=== PATIENT | male | born 1960 | race Caucasian/White ===

== ENCOUNTER 2016-12-04 08:41 | Emergency (ER) | payer BC ==
[~2016-12-04] VITALS: Ht 170.2 cm; Wt 77.1 kg
[2016-12-04 08:41] VITALS: BP_SYST 171
[~2016-12-04 08:41] MED LIST: AMLO2.5T2 PO; FURO80TA86 PO; INSU100V; LACT10SO66 PO; METH750T3 PO; NPH,100V SUBCUT; OMEP40CA33 PO; SPIR100T24 PO; TAMS-11 PO
[2016-12-04 09:30] VITALS: BP_SYST 126
== END 2016-12-04 09:20 | disposition home or self-care (01) ==
LOC: SED 08:41
DX: Z48.01 Encounter for change or removal of surgical wound dressing (principal); E11.9 Type 2 diabetes mellitus without complications; K21.9 Gastro-esophageal reflux disease without esophagitis; I10 Essential (primary) hypertension; Z86.19 Personal history of other infectious and parasitic diseases; Z98.890 Other specified postprocedural states; Z79.4 Long term (current) use of insulin; Z79.899 Other long term (current) drug therapy; Z88.8 Allergy status to other drugs, medicaments and biological substances
CPT/HCPCS: 99283

== ENCOUNTER 2016-12-09 21:15 | Inpatient (IN) | payer BC ==
[~2016-12-09] VITALS: Ht 167.6 cm; Wt 72.6 kg
[~2016-12-09 21:15] MED LIST changes: +ACET-1010 PO; +CIPR-211 PO; +CYAN500T2 PO; +FURO80TA3 PO; +HYDR-1189 PO; +LORA1TAB PO; +METH500T PO; +RANI150T8 PO; +SSNPH SQ
[2016-12-09 21:30] VITALS: BP 146/85; PULSE 91; RESP 20; TEMP 97.6; O2SAT 100
--- NOTE | 2016-12-09 22:00 | NUR ---
MABLE Cee at bedside examining patient.
--- NOTE | 2016-12-09 22:00 | NUR ---
Patient to ER bed 5 to gown for evaluation. Side rails up. Assumed care of pt.
[2016-12-09 22:29] LABS: BASOPHILS % (AUTO) 0.8 % (0.0-2.0); EOSINOPHILS # (AUTO) 0.1 K/uL (0.0-0.4); EOSINOPHILS % (AUTO) 1.9 % (0.0-4.0); HEMOGLOBIN 9.4 g/dL (14.0-18.0); LYMPHOCYTES # (AUTO) 0.8 K/uL (1.0-5.5); LYMPHOCYTES % (AUTO) 13.3 % (20.5-51.5); MEAN CORPUSCULAR HEMOGLOBIN 30 pg (27-31); MEAN CORPUSCULAR HGB CONC 34 % (32-36); MEAN CORPUSCULAR VOLUME 90 fL (79.0-98.0); MONOCYTES # (AUTO) 0.7 K/uL (0.0-1.0); NEUTROPHILS # (AUTO) 4.4 K/uL (1.8-7.7); PLATELET COUNT (AUTO) 196 K/uL (130-430); RED BLOOD CELL COUNT(AUTO) 3.11 MIL/uL (4.2-6.2); RED CELL DISTRIBUTION WIDTH 17.2 % (9.0-15.0)
[2016-12-09] MEDS ORDERED: LORazepam 2 MG/ML VIAL (FOR ER USE) IVP ONE (22:30)
--- NOTE | 2016-12-09 22:30 | NUR ---
Pt. presented to ED with ALOC, pt. is AAOx2. Has c/o nausea. -vomiting, -SOB, -fever
[2016-12-09 22:41] LABS: ANION GAP 6 (5-15); CALCIUM 7.7 mg/dL (8.4-11.0); CHLORIDE 112 mmol/L (98-107); CREATININE 1.95 mg/dL (0.55-1.30); GLUCOSE 157 mg/dL (70-99); POTASSIUM 4.3 mmol/L (3.5-5.1); SODIUM SERUM 137 mmol/L (136-145); UREA NITROGEN, BLOOD 29 mg/dL (8-21)
[2016-12-09 22:45] LABS: ALANINE AMINOTRANSFERASE 68 U/L (12-78); ALBUMIN 2.1 g/dL (3.4-4.8); ASPARTATE AMINOTRANSFERASE 64 U/L (10-37); TOTAL BILIRUBIN 2.2 mg/dL (0.0-1.0); TOTAL PROTEIN, SERUM 7.4 g/dL (6.4-8.3)
[2016-12-09 22:50] LABS: GFR AFRICAN AMERICAN 46 mL/min (>90)
[2016-12-09 22:51] LABS: ALCOHOL, BLOOD < 3 mg/dL (<10)
[2016-12-09 22:52] LABS: SALICYLATE < 1 mg/dL (3-30)
--- NOTE | 2016-12-09 23:10 | NUR ---
pt. to CT scan
[2016-12-09 23:13] LABS: INR 1.4 (0.80-1.20)
[2016-12-09 23:15] LABS: ACETAMINOPHEN < 1 ug/mL (1-30)
[2016-12-09] MEDS ORDERED: LACTULOSE 20 GM/30 ML UDC PO ONE (23:15)
--- NOTE | 2016-12-09 23:23 | NUR ---
Pt. back from CT
[2016-12-09] MEDS ORDERED: metformin PO (23:41)
[2016-12-09] MEDS ORDERED: lexapro PO (23:41)
--- NOTE | 2016-12-09 23:48 | NUR ---
Primary admitting physician, at bedside examining patient.
[2016-12-10] VITALS (7 sets, daily range): BP systolic 139–163; BP diastolic 73–112; PULSE 65–93; RESP 16–20; TEMP 97.1–99.6; O2SAT 98–100
[2016-12-10] MEDS ORDERED: 0.45% NACL 1,000 ML IV ONE (00:15)
[2016-12-10] MEDS: PANTOPRAZOLE SODIUM 40 MG TAB PO SCH ×3 (00:15→21:17)
[2016-12-10] MEDS ORDERED: DEXTROSE 50% JECT 50 ML DISP.SYRIN IVP PRN (00:15)
[2016-12-10] MEDS ORDERED: cefTRIAXone 1 GM in D5W 50 ML IV SCH (00:30)
--- NOTE | 2016-12-10 00:35 | NUR ---
Pt. being transfered to [place] [id number] as per ACLS protocol, pt. stable for transfer at this time
--- NOTE | 2016-12-10 00:40 | NUR ---
ADMISSION NOTE Received patient from ER via gurney. Patient admitted with diagnosis of Hepatic Encephalopathy. Patient is awake, alert, oriented X 1. Patient oriented to hospital room, call light, toileting, pain management and safety-teach back done. Patient informed that Heath will be his nurse and that their room number is 120A. Personal belongings checked and Belongings List documented. Call light within reach.
--- NOTE | 2016-12-10 00:41 | NUR ---
Bedside report given to receiving RN
--- NOTE | 2016-12-10 00:43 | NUR ---
CONSULTATION PAGED REASON FOR CONSULTATION:CIRRHOSIS WAS CONSULT CALLED?Y PERSON WHO WAS NOTIFIED:[facility] CONSULTING PHYSICIAN:JUSTEN VEGA (BRIG[employer] OFFICER) BREASTFEEDING PEER COUNSELOR SPECIALTY:GI BREASTFEEDING PEER COUNSELOR PHONE NUMBER:[phone]
--- NOTE | 2016-12-10 00:45 | NUR ---
pt.recieved via the er-dept.pt.presents stable status.quiescent affect;calm,somnolent.v/s values stable. pt.not verbalizing @this hour.apprised pt.received ativan:er-dept.room air;o2-sat%=98%.abdomen distended. iv fluids access;rt forearm.ivlock.call light placed w/in pt's reach.
--- NOTE | 2016-12-10 00:46 | NUR ---
CONSULTATION PAGED REASON FOR CONSULTATION:CP WAS CONSULT CALLED?Y PERSON WHO WAS NOTIFIED:[facility] CONSULTING PHYSICIAN:BRIA PÉREZ AUTO JOB ESTIMATOR SPECIALTY:CARDIO AUTO JOB ESTIMATOR PHONE NUMBER:[phone]
--- NOTE | 2016-12-10 01:15 | NUR ---
i have assessed the blood glucose;109mg/dl i reviewed 's orders:blood glucose ordered:ac/hs. Addendum: 12/10/16 at 0756 by Heath Johnson RN pt.lauraed.
[2016-12-10] MEDS ORDERED: cefTRIAXone 1 GM IVPB PREMIX 50 ML IV ONE (01:36)
--- NOTE | 2016-12-10 02:00 | NUR ---
i have initiated the administration of iv fluids:45/ns @100ml/hr.i have administered the initial dose:rocephin:abx/ivpb. review of skin integrity:reveals skin intact.call light w/in pt's reach.no distress/discomfort manifested.call light w/in the pt's reach. Addendum: 12/10/16 at 0755 by Heath Johnson RN pt.repositioned.
--- NOTE | 2016-12-10 04:00 | NUR ---
pt.assessed.v/s assessed.b/p presents elevated value:to f/u.pt.presents quiescent affect;calm,asleep. no distress/discomfort manifested.pt.will verbalize 1-2 words only.return to sleep.call light w/in pt's reach. Addendum: 12/10/16 at 0755 by Heath Johnson RN pt.repositioned and cleaned.
[2016-12-10] MEDS: NEOMYCIN SULFATE 500 MG TABLET PO SCH ×3 (05:31→11:25)
--- NOTE | 2016-12-10 06:00 | NUR ---
pt.assessed.pt.presents quiescent affect;calm,asleep.belonging's list reviewed:er-dept.pt.presented valubles @the unit>al valuables sent w/family:clothing abnd cellular w/acetylene torch operator @bedside.blood glucose assessed:102mg/dl. call light laced w/in pt's reach.pt.repositioned.
[2016-12-10 07:04] LABS: BASOPHILS # (AUTO) 0.1 K/uL (0.0-0.2); BASOPHILS % (AUTO) 1.5 % (0.0-2.0); EOSINOPHILS # (AUTO) 0.2 K/uL (0.0-0.4); EOSINOPHILS % (AUTO) 3.6 % (0.0-4.0); HEMATOCRIT 30.3 % (36-54); LYMPHOCYTES # (AUTO) 0.8 K/uL (1.0-5.5); LYMPHOCYTES % (AUTO) 17.3 % (20.5-51.5); MEAN CORPUSCULAR HEMOGLOBIN 30 pg (27-31); MEAN CORPUSCULAR HGB CONC 33 % (32-36); MEAN CORPUSCULAR VOLUME 91 fL (79.0-98.0); MONOCYTES # (AUTO) 0.6 K/uL (0.0-1.0); MONOCYTES % (AUTO) 13.7 % (1.7-9.3); NEUTROPHILS # (AUTO) 2.9 K/uL (1.8-7.7); NEUTROPHILS % (AUTO) 63.9 % (40.0-70.0); PLATELET COUNT (AUTO) 184 K/uL (130-430); RED BLOOD CELL COUNT(AUTO) 3.33 MIL/uL (4.2-6.2); RED CELL DISTRIBUTION WIDTH 17.5 % (9.0-15.0); WHITE BLOOD COUNT (AUTO) 4.6 K/uL (4.8-10.8)
[2016-12-10 07:32] LABS: CALCIUM 8.1 mg/dL (8.4-11.0); CREATININE 1.62 mg/dL (0.55-1.30); PHOSPHORUS 3.6 mg/dL (2.7-4.5); POTASSIUM 3.9 mmol/L (3.5-5.1)
[2016-12-10 07:33] LABS: FREE T4 (FREE THYROXINE) 0.8 ng/dL (0.6-1.6); THYROID STIMULATING HORMONE 2.35 uIu/mL (0.34-4.82)
--- NOTE | 2016-12-10 08:00 | NUR ---
AM Initial Notes Pt asleep but when awakened alert and oriented 2 with confusion. Pt appears lethargic. No complaints of pain or discomfort. No distress noted. futures trader in place. Safety and Fall risk enforced with bed alarm armed, 3 rails up and close to nurse's station. Encouraged to eat breakfast. Pt states he is not hungry and went back to sleep. Encouraged to call for assistance. Call light within reach. Will monitor.
[2016-12-10] MEDS ORDERED: OMEPRAZOLE 20 MG CAPSULE.DR (PriLOSEC) PO SCH (09:00)
[2016-12-10] MEDS ORDERED: LACTULOSE 20 GM/30 ML UDC PO SCH (09:00)
[2016-12-10] MEDS: FUROSEMIDE 80 MG TABLET PO SCH (09:02)
[2016-12-10] MEDS: SPIRONOLACTONE 50 MG TABLET (ALDACTONE) PO SCH (09:02)
[2016-12-10] MEDS: amLODIPine BESYLATE 5 MG TABLET PO SCH (09:03)
--- NOTE | 2016-12-10 09:07 | NUR ---
Nutrition Update Himanshu Scale 13 noted. Pt admitted for hepatic encephalopathy. Diet: full liquid BMI: 25.8 kg/m2 RD to follow per nutrition care standards.
--- NOTE | 2016-12-10 09:08 | NUR ---
Dr. Lavenr GRANADO inside room assessing patient.
--- NOTE | 2016-12-10 10:00 | NUR ---
Rounds Pt lethargic having 2D echo done. No complaints of pain or discomfort. No distress noted. Will monitor.
--- NOTE | 2016-12-10 11:30 | NUR ---
Dr. Danny GRANADO inside room assessing patient. Plan of care discussed.
[2016-12-10] MEDS: INSULIN REGULAR, HUMAN 100 UNITS/ML, 10 ML VIAL (novoLIN R) SUBCUT PRN ×2 (11:32→21:29)
--- NOTE | 2016-12-10 11:49 | NUR ---
Rounds Pt awake assisted to restroom for BRP. No complaints of pain or discomfort. No distress noted. Tremors noted and informed Dr. Delgado. Blood sugar monitor 189. Insulin sliding scale administered. Kept comfortable. Encouraged to call for assistance. Will monitor.
[2016-12-10] MEDS ORDERED: chlordiazePOXIDE HCL 10 MG CAPSULE PO ONE ×3 (12:00)
[2016-12-10] MEDS: chlordiazePOXIDE HCL 10 MG CAPSULE PO SCH ×2 (12:00→21:16)
[2016-12-10] MEDS ORDERED: PHYTONADIONE 5 MG TABLET PO ONE (12:00)
[2016-12-10] MEDS ORDERED: NEOMYCIN SULFATE 500 MG TABLET PO SCH (12:00)
[2016-12-10] MEDS ORDERED: DICLOFENAC SODIUM 25 MG TABLET.DR PO PRN (12:30)
[2016-12-10] MEDS ORDERED: THIAMINE HCL 100 MG TABLET PO ONE (12:45)
[2016-12-10] MEDS ORDERED: NEPHROVITE, (FOLIC ACID/VITAMIN B COMP W-C 1 TAB) PO ONE (12:45)
--- NOTE | 2016-12-10 13:22 | NUR ---
Consult was called Re: Bacteremia spoke with Rajni from Dr Connie escalera .
--- NOTE | 2016-12-10 13:30 | NUR ---
cons for dr darron davis from [facility] for right shoulder pain
--- NOTE | 2016-12-10 13:30 | NUR ---
Rounds Pt asleep. No signs of facial grimacing for pain or discomfort. No distress noted. Repositioned and kept comfortable. Will monitor.
[2016-12-10] MEDS: PIPERACILLIN/TAZO 2.25G/DEX-IS 50 ML IV SCH ×3 (14:57→23:01)
--- NOTE | 2016-12-10 15:13 | NUR ---
Rounds Pt awake resting in bed. No significant changes noted. Kept comfortable. Will monitor.
[2016-12-10] MEDS: TAMSULOSIN HCL 0.4 MG CAP PO SCH (17:27)
[2016-12-10] MEDS: LACTULOSE 20 GM/30 ML UDC PO SCH (17:28)
--- NOTE | 2016-12-10 17:30 | NUR ---
Rounds Pt awake resting in bed. No significant changes noted. Blood sugar check 149. No insulin scale needed. Encouraged to call for assistance. Call light within reach. Will monitor.
[2016-12-10 18:14] LABS: BODY FLUID SOURCE/ TYPE ASCITES; SOURCE/TYPE ,BODY FLUID PARACENTESIS
[2016-12-10 18:15] LABS: BF APPEARANCE UNSPUN CLEAR (CLEAR); BODY FLUID COLOR YELLOW (LT YELLOW); BODY FLUID TOTAL VOLUME 5100 mL; EOSINOPHIL, BODY FLUID 0 %; LYMPHOCYTES, BODY FLUID 14 %; MONOCYTES,BODY FLUID 86 %; NEUTROPHIL, BODY FLUID 0 %; RBC, BODY FLUID 8 /uL; WBC, BODY FLUID 19 /uL
--- NOTE | 2016-12-10 18:40 | NUR ---
Closing notes Pt awake with family at bedside. No significant changes noted. Will endorse care to incoming nurse.
--- NOTE | 2016-12-10 19:20 | NUR ---
initial nursing notes: Patient awake in bed. Patient eating dinner that was brought by family member. Patient has IV access on the right forearm. Patient denies of having pain.
[2016-12-10] MEDS: RIFAXIMIN 550 MG TABLET PO SCH (21:17)
[2016-12-10] MEDS: LACTOBACILLUS RHAMNOSUS GG 1 CAP CAPSULE PO SCH (21:19)
--- NOTE | 2016-12-10 21:20 | NUR ---
nursing rounds: Patient resting in bed. Patient watching television. Patient has no tremors.
--- NOTE | 2016-12-10 22:10 | NUR ---
nursing rounds: Just received the sling from the nursing inside sales supervisor. Went to patient's room to offer the sling to be placed on patient's affected arm. Patient declines for the sling to be put on at this time and requested for the sling to be placed in the morning.
[2016-12-10 22:56] LABS: BODY FLUID GLUCOSE 175 mg/dL; BODY FLUID TOTAL PROTEIN 0.5 g/dL
--- NOTE | 2016-12-10 23:50 | NUR ---
nursing rounds: Reminded patient of his NPO status starting midnight for abdominal ultrasound tomorrow. Patient verbalized understanding.
--- NOTE | 2016-12-11 01:50 | NUR ---
nursing rounds: Patient asleep in bed. Patient has no shortness of breath.
--- NOTE | 2016-12-11 03:50 | NUR ---
nursing rounds: Patient is ambulatory to the bathroom with a steady gait.
[2016-12-11 04:50] VITALS: BP 139/86; PULSE 94; RESP 18; TEMP 98.2; O2SAT 99
[2016-12-11] MEDS: PIPERACILLIN/TAZO 2.25G/DEX-IS 50 ML IV SCH ×3 (05:50→18:04)
--- NOTE | 2016-12-11 05:50 | NUR ---
nursing rounds: Patient calmly resting in bed. Call light within patient's reach.
[2016-12-11 06:36] LABS: BASOPHILS # (AUTO) 0.1 K/uL (0.0-0.2); BASOPHILS % (AUTO) 1.2 % (0.0-2.0); EOSINOPHILS # (AUTO) 0.2 K/uL (0.0-0.4); EOSINOPHILS % (AUTO) 2.8 % (0.0-4.0); HEMATOCRIT 28.3 % (36-54); HEMOGLOBIN 9.7 g/dL (14.0-18.0); LYMPHOCYTES % (AUTO) 15.8 % (20.5-51.5); MEAN CORPUSCULAR HEMOGLOBIN 32 pg (27-31); MEAN CORPUSCULAR HGB CONC 34 % (32-36); MEAN CORPUSCULAR VOLUME 94 fL (79.0-98.0); MONOCYTES # (AUTO) 0.8 K/uL (0.0-1.0); MONOCYTES % (AUTO) 13.6 % (1.7-9.3); NEUTROPHILS % (AUTO) 66.6 % (40.0-70.0); PLATELET COUNT (AUTO) 191 K/uL (130-430); RED BLOOD CELL COUNT(AUTO) 3.02 MIL/uL (4.2-6.2); WHITE BLOOD COUNT (AUTO) 6.1 K/uL (4.8-10.8)
[2016-12-11 06:48] LABS: ALBUMIN 2.1 g/dL (3.4-4.8); CREATININE 1.81 mg/dL (0.55-1.30); POTASSIUM 3.9 mmol/L (3.5-5.1); THYROID STIMULATING HORMONE 1.78 uIu/mL (0.34-4.82); TOTAL PROTEIN, SERUM 7.5 g/dL (6.4-8.3)
--- NOTE | 2016-12-11 07:26 | NUR ---
closing nursing notes: Patient is awake, alert and oriented X 4. Patient is in no acute respiratory distress. No episodes of fall and no injuries throughout the plant operator/shift supervisor. Provided nursing report to incoming morning shift nurse, Amee Edmond RN, at patient's bedside.
[2016-12-11 08:00] VITALS: BP 136/77; PULSE 88; RESP 17; TEMP 97.4; O2SAT 99
--- NOTE | 2016-12-11 08:00 | NUR ---
Am notes- in bed awake, forgetful. denies any pain or discomfort. keep npo for abdominal ultrasound. pt verbalize understanding. ambulate to the bathroom with steady gait. will monitor.
--- NOTE | 2016-12-11 09:04 | NUR ---
ROUNDS Dr. cardoso here and made aware of ultrasound result: dvt on the rt femoral.
[2016-12-11] MEDS: LACTULOSE 20 GM/30 ML UDC PO SCH ×2 (09:41→18:04)
[2016-12-11] MEDS: PANTOPRAZOLE SODIUM 40 MG TAB PO SCH (09:42)
[2016-12-11] MEDS: FUROSEMIDE 80 MG TABLET PO SCH (09:42)
[2016-12-11] MEDS: LACTOBACILLUS RHAMNOSUS GG 1 CAP CAPSULE PO SCH ×2 (09:43→20:56)
[2016-12-11] MEDS: NEPHROVITE, (FOLIC ACID/VITAMIN B COMP W-C 1 TAB) PO SCH (09:43)
[2016-12-11] MEDS: RIFAXIMIN 550 MG TABLET PO SCH ×2 (09:43→20:56)
[2016-12-11] MEDS: amLODIPine BESYLATE 5 MG TABLET PO SCH (09:43)
[2016-12-11] MEDS: SPIRONOLACTONE 50 MG TABLET (ALDACTONE) PO SCH (09:44)
[2016-12-11] MEDS: THIAMINE HCL 100 MG TABLET PO SCH (09:44)
--- NOTE | 2016-12-11 10:16 | NUR ---
sitting in the chair. just eat breakfast. denies any pain or discomfort. no distress noted.
[2016-12-11] MEDS: INSULIN REGULAR, HUMAN 100 UNITS/ML, 10 ML VIAL (novoLIN R) SUBCUT PRN ×2 (11:27→21:27)
--- NOTE | 2016-12-11 12:00 | NUR ---
PHYSICAL THERAPY CO-SIGN The Physical Therapy Progress Notes documented by Cathode Ray Tube Salvage Processor have been reviewed. Reviewed/Co-Signed by: Stephanie Ghosh, PT Documentation Done by: Lavell Nuñez PTA I concur with the documentation of this NETWORK APPLICATIONS SPECIALIST. Plan: continue PT as per plan of care. Patient is doing well with PT. Addendum: 12/11/16 at 1303 by Stephanie Ghosh PT Amended: Links added.
--- NOTE | 2016-12-11 12:13 | NUR ---
in bed, talking on the phone. denies any pain or discomfort. scheduled antibiotics given.
[2016-12-11 12:20] VITALS: BP 135/79; PULSE 89; RESP 19; TEMP 97; O2SAT 100
--- NOTE | 2016-12-11 13:49 | NUR ---
HIMANSHU SCALE EVALUATION: Patient evaluated for a low Himanshu score of 13. Patient was awake, alert, oriented and received in a [place] bed with an atmos air 9000 mattress. Patient is able to turn in bed and use the bathroom independently. Skin is fair (+). Recommend encourage and assist patient as needed with repositioning every 2 hours with pillow support and off-load pressure areas with pillows for pressure re-distribution. Elevate, off-load and float bilateral heels with pillows. Use moisture barrier cream on buttocks and other moisture susceptible areas QID and as needed for soiling. Perform skin care and monitor skin integrity Q shift.
--- NOTE | 2016-12-11 14:25 | NUR ---
BM- pt stated that he went to the bathroom and had black stool but pt flush it. DR. cardoso here making rounds and made aware.
[2016-12-11] MEDS ORDERED: PANTOPRAZOLE SODIUM 40 MG/VIAL (PROTONIX) IVP ONE (14:30)
[2016-12-11 16:00] VITALS: BP 152/78; PULSE 85; RESP 16; TEMP 98.1
--- NOTE | 2016-12-11 16:55 | NUR ---
Notes- Pt went for VQ scan via wheelchair. no distress noted.
[2016-12-11] MEDS: TAMSULOSIN HCL 0.4 MG CAP PO SCH (18:04)
[2016-12-11 18:11] LABS: BASOPHILS # (AUTO) 0.1 K/uL (0.0-0.2); EOSINOPHILS # (AUTO) 0.1 K/uL (0.0-0.4); EOSINOPHILS % (AUTO) 1.5 % (0.0-4.0); HEMOGLOBIN 11.1 g/dL (14.0-18.0); LYMPHOCYTES % (AUTO) 16.2 % (20.5-51.5); MEAN CORPUSCULAR HEMOGLOBIN 32 pg (27-31); MEAN CORPUSCULAR HGB CONC 34 % (32-36); MEAN CORPUSCULAR VOLUME 93 fL (79.0-98.0); MONOCYTES # (AUTO) 0.7 K/uL (0.0-1.0); NEUTROPHILS # (AUTO) 4.2 K/uL (1.8-7.7); NEUTROPHILS % (AUTO) 69.3 % (40.0-70.0); PLATELET COUNT (AUTO) 206 K/uL (130-430); RED BLOOD CELL COUNT(AUTO) 3.54 MIL/uL (4.2-6.2); RED CELL DISTRIBUTION WIDTH 17.1 % (9.0-15.0); WHITE BLOOD COUNT (AUTO) 6.1 K/uL (4.8-10.8)
--- NOTE | 2016-12-11 18:38 | NUR ---
MD ROUNDS- SEEN BY DR. VIGIL AT BEDSIDE.
--- NOTE | 2016-12-11 18:39 | NUR ---
NOTES- In bed, awake. eating dinner. denies any pain or discomfort. no distress noted. all needs meet. will endorse
--- NOTE | 2016-12-11 19:25 | NUR ---
initial nursing notes: Patient awake in bed. Patient watching television. Patient denies of having pain.
[2016-12-11 19:40] VITALS: BP 143/83; PULSE 81; RESP 17; TEMP 98.6; O2SAT 98
[2016-12-11] MEDS ORDERED: AMPICILLIN SODIUM/SULBACTAM NA 1.5 GM VIAL ONE (20:20)
[2016-12-11] MEDS: chlordiazePOXIDE HCL 10 MG CAPSULE PO SCH (20:54)
[2016-12-11] MEDS: PANTOPRAZOLE SODIUM 40 MG/VIAL (PROTONIX) IVP SCH (20:59)
[2016-12-11] MEDS: AMPICILLIN SODIUM/SULBACTAM NA 1.5 GM in NS 50 ML IV SCH (21:25)
--- NOTE | 2016-12-11 21:25 | NUR ---
nursing rounds: Patient ambulated to the bathroom. Patient stated that he had a bowel movement.
--- NOTE | 2016-12-11 23:25 | NUR ---
nursing rounds: Patient asleep in bed. Patient has no shortness of breath.
[2016-12-11 23:54] VITALS: BP 126/61; PULSE 83; RESP 21; TEMP 98.1; O2SAT 100
--- NOTE | 2016-12-12 01:25 | NUR ---
nursing rounds: Patient sleeping in bed. Patient's breathing pattern is regular and unlabored.
--- NOTE | 2016-12-12 03:25 | NUR ---
nursing rounds: Patient sleeping in bed. Patient has no respiratory distress.
[2016-12-12 04:00] VITALS: BP 128/72; PULSE 81; RESP 16; TEMP 98.8; O2SAT 100
--- NOTE | 2016-12-12 05:25 | NUR ---
nursing rounds: Snack provided per patient's request.
[2016-12-12] MEDS: INSULIN REGULAR, HUMAN 100 UNITS/ML, 10 ML VIAL (novoLIN R) SUBCUT PRN ×2 (06:12→11:31)
[2016-12-12 06:49] LABS: BASOPHILS # (AUTO) 0.1 K/uL (0.0-0.2); BASOPHILS % (AUTO) 1.2 % (0.0-2.0); EOSINOPHILS # (AUTO) 0.1 K/uL (0.0-0.4); EOSINOPHILS % (AUTO) 2.5 % (0.0-4.0); HEMATOCRIT 27.4 % (36-54); LYMPHOCYTES % (AUTO) 20.5 % (20.5-51.5); MEAN CORPUSCULAR HEMOGLOBIN 31 pg (27-31); MEAN CORPUSCULAR HGB CONC 33 % (32-36); MEAN CORPUSCULAR VOLUME 93 fL (79.0-98.0); MONOCYTES # (AUTO) 0.6 K/uL (0.0-1.0); MONOCYTES % (AUTO) 13.4 % (1.7-9.3); NEUTROPHILS # (AUTO) 2.9 K/uL (1.8-7.7); NEUTROPHILS % (AUTO) 62.4 % (40.0-70.0); PLATELET COUNT (AUTO) 164 K/uL (130-430); RED BLOOD CELL COUNT(AUTO) 2.95 MIL/uL (4.2-6.2); RED CELL DISTRIBUTION WIDTH 17.1 % (9.0-15.0); WHITE BLOOD COUNT (AUTO) 4.7 K/uL (4.8-10.8)
[2016-12-12 07:06] LABS: INR 1.3 (0.80-1.20); PROTHROMBIN TIME 14.6 SECS (9.5-12.5)
[2016-12-12 07:19] LABS: ALBUMIN 1.8 g/dL (3.4-4.8); CREATININE 1.88 mg/dL (0.55-1.30); POTASSIUM 3.5 mmol/L (3.5-5.1); TOTAL BILIRUBIN 1.9 mg/dL (0.0-1.0); TOTAL PROTEIN, SERUM 6.9 g/dL (6.4-8.3)
--- NOTE | 2016-12-12 07:33 | NUR ---
closing nursing notes: Patient is awake, alert and oriented X 4. Patient is in no acute respiratory distress. No episodes of fall and no injuries throughout the third shift lieutenant. Provided nursing report to incoming morning shift nurse, DERICK Whittaker, at patient's bedside.
--- NOTE | 2016-12-12 07:39 | NUR ---
INITIAL NOTE RECEIVED PATIENT FROM PROPERTY MANAGEMENT BOOKKEEPER NURSE, PATIENT IS ALERT AND ORIENTED X 4, ASSESSMENT COMPLETE, PATIENT HAS IV RIGHT FOREARM SALINE LOCK, FLUSHES WELL, INSTRUCTED PATIENT TO USE CALL SPARROW IF ASSISTANCE IS NEEDED, PATIENT VERBALIZED UNDERSTANDING, CALL SPARROW LEFT NEXT TO PATIENT, BED IN LOWEST POSITION, SIDE RAILS UP, FALL PRECAUTIONS IN PLACE, WILL CONTINUE TO MONITOR PATIENT.
[2016-12-12] MEDS: LACTULOSE 20 GM/30 ML UDC PO SCH (08:00)
[2016-12-12 08:02] VITALS: BP 148/70; PULSE 79; RESP 17; TEMP 97.8; O2SAT 97
[2016-12-12] MEDS: RIFAXIMIN 550 MG TABLET PO SCH (08:21)
[2016-12-12] MEDS: NEPHROVITE, (FOLIC ACID/VITAMIN B COMP W-C 1 TAB) PO SCH (08:22)
[2016-12-12] MEDS: LACTOBACILLUS RHAMNOSUS GG 1 CAP CAPSULE PO SCH (08:22)
[2016-12-12] MEDS: FUROSEMIDE 80 MG TABLET PO SCH (08:23)
[2016-12-12] MEDS: PANTOPRAZOLE SODIUM 40 MG/VIAL (PROTONIX) IVP SCH (08:23)
[2016-12-12] MEDS: amLODIPine BESYLATE 5 MG TABLET PO SCH (08:23)
--- NOTE | 2016-12-12 08:25 | NUR ---
MEDICATIONS PATIENT RECEIVED MORNING MEDICATION, EDUCATED PATIENT ON POTENTIAL SIDE EFFECTS OF MEDICATIONS, PATIENT VERBALIZED UNDERSTANDING, NO OTHER NEEDS AT THIS TIME, WILL CONTINUE TO MONITOR.
[2016-12-12] MEDS ORDERED: SPIRONOLACTONE 50 MG TABLET (ALDACTONE) PO SCH (09:00)
[2016-12-12] MEDS: AMPICILLIN SODIUM/SULBACTAM NA 1.5 GM in NS 50 ML IV SCH (09:05)
[2016-12-12] MEDS: THIAMINE HCL 100 MG TABLET PO SCH (09:05)
--- NOTE | 2016-12-12 10:11 | NUR ---
RN ROUNDS PATIENT IS CURRENTLY RESTING IN BED WITH EYES CLOSED,NO SIGNS OF DISTRESS NOTED, BREATHING IS EVEN AND UNLABORED CALL SPARROW LEFT NEXT TO PATIENT'S HAND, FALL PRECAUTIONS IN PLACE, WILL CONTINUE TO MONITOR PATIENT.
--- NOTE | 2016-12-12 12:21 | NUR ---
RN ROUNDS PATIENT IS CURRENTLY SITTING UP EATING LUNCH, NO COMPLAINTS OF PAIN OR DISCOMFORT, WILL CONTINUE TO MONITOR
[2016-12-12 12:52] VITALS: BP 130/80; PULSE 79; RESP 16; TEMP 97; O2SAT 98
--- NOTE | 2016-12-12 13:25 | NUR ---
RN ROUNDS PATIENT IS CURRENTLY RESTING IN BED, NO COMPLAINTS OF PAIN OR DISCOMFORT, FALL PRECAUTIONS IN PLACE, WILL CONTINUE TO MONITOR.
--- NOTE | 2016-12-12 14:38 | NUR ---
RN ROUNDS PATIENT IS WATCHING TV, PATIENT STATES HE IS COMFORTABLE, NO OTHER NEEDS AT THIS TIME, WILL CONTINUE TO MONITOR.
[2016-12-12] MEDS ORDERED: AMOX-423 PO (16:20)
[2016-12-12 16:28] VITALS: BP 145/80; PULSE 82; RESP 17; TEMP 97.8; O2SAT 100
[2016-12-12 16:34] VITALS: BP 145/80; PULSE 87; RESP 16; TEMP 97.8; O2SAT 100
--- NOTE | 2016-12-12 16:50 | NUR ---
ACCUCHECK PATIENT REQUESTED ACCUCHECK BE DONE BEFORE DISCHARGED, ACCUCHECK DONE, BS =177, PATIENT REFUSED INSULIN STATED HE WILL TAKE INSULIN WHEN HE GETS HOME, EDUCATED PATIENT ON IMPORTANCE OF INSULIN WHEN GLUCOSE IS ELEVATED, PATIENT VERBALIZED UNDERSTANDING AND STATED HE STILL WANTS TO TAKE IT WHEN HE GETS HOME.
--- NOTE | 2016-12-12 16:54 | NUR ---
D/C Patient Patient given medication reconciliation form and D/C instructions. Exit Care provided. Patient verbalized understanding. MD discussed with patient the results and treatment provided. Ambulatory with steady gait for discharge to home. Patient in stable condition, ID band removed. IV catheter removed, intact and dressing applied, no active bleeding. Rx of Augmentin given. Patient educated on pain management. All belongings sent with patient.
== END 2016-12-12 16:45 | disposition home or self-care (01) | DRG 871 ==
LOC: SED 21:15 → STU 23:37 → SMU 12-11 14:00
PROVIDERS: ADMIT Internal Medicine; ATTEND Internal Medicine
PROC: 0W9G3ZZ Drainage of Peritoneal Cavity, Percutaneous Approach (ICD-10-PCS; principal; 2016-12-10)
DX: A40.8 Other streptococcal sepsis (principal); K85.90 Acute pancreatitis without necrosis or infection, unspecified; E43 Unspecified severe protein-calorie malnutrition; K65.2 Spontaneous bacterial peritonitis; K72.90 Hepatic failure, unspecified without coma; K70.31 Alcoholic cirrhosis of liver with ascites; D63.8 Anemia in other chronic diseases classified elsewhere; F11.90 Opioid use, unspecified, uncomplicated; K21.9 Gastro-esophageal reflux disease without esophagitis; K70.11 Alcoholic hepatitis with ascites; E11.21 Type 2 diabetes mellitus with diabetic nephropathy; I12.9 Hypertensive chronic kidney disease with stage 1 through stage 4 chronic kidney disease, or unspecified chronic kidney disease; N18.9 Chronic kidney disease, unspecified; E11.22 Type 2 diabetes mellitus with diabetic chronic kidney disease; F17.210 Nicotine dependence, cigarettes, uncomplicated; I44.7 Left bundle-branch block, unspecified; Z79.899 Other long term (current) drug therapy; B18.2 Chronic viral hepatitis C; Z88.8 Allergy status to other drugs, medicaments and biological substances; Z79.84 Long term (current) use of oral hypoglycemic drugs; Z79.4 Long term (current) use of insulin; Z68.25 Body mass index [BMI] 25.0-25.9, adult
CPT/HCPCS: 36415; 49083; 70450-TC; 71010; 73030; 76700-TC; 76857; 78579; 78580-TC; 80048; 80053; 80061; 82040-TC; 82042; 82105; 82140-TC; 82947-TC; 82962; 83036; 83690-TC; 83735-TC; 83880; 84100-TC; 84157-TC; 84439; 84443-TC; 84484; 85025; 85610-TC; 85730-TC; 86886; 86900; 86901; 87040-TC; 87070-TC; 87186-TC; 89051-TC; 89060-TC; 93005; 93306; 96374; 97110-GP; 97116-GP; 97530-GP; 99285; A9539; A9540; C1729; C9113; G0480; G0481; G0482; J0295; J0696; J1815; J2060; J2543; J7060

== ENCOUNTER 2017-02-19 07:28 | Emergency (ER) | payer BC, MEDICAID ==
[~2017-02-19] VITALS: Ht 170.2 cm; Wt 65.3 kg
[~2017-02-19 07:28] MED LIST changes: -ACET-1010 PO; +AMOX-423 PO; -CIPR-211 PO; -CYAN500T2 PO; -FURO80TA3 PO; -FURO80TA86 PO; -HYDR-1189 PO; -LORA1TAB PO; -METH500T PO; -METH750T3 PO; -NPH,100V SUBCUT; -RANI150T8 PO; -SSNPH SQ
[2017-02-19 07:37] VITALS: BP_SYST 160
--- NOTE | 2017-02-19 07:44 | NUR ---
Patient to ER bed 5 to gown for evaluation. Side rails up. Report given to Haydee SEPULVEDA.
--- NOTE | 2017-02-19 08:04 | NUR ---
# 20 gauge angiocath placed to RFA. Use of asceptic technique. Opsite placed over site. Blood return noted. Blood for lab drawn from site. Flushed with 10 cc of normal saline. No evidence of infiltration noted. Patient tolerated well.
--- NOTE | 2017-02-19 08:10 | NUR ---
ER at bedside examining patient.
--- NOTE | 2017-02-19 08:11 | NUR ---
pt came from home, sent by PMD for elevated ammonia level 313. PT aaox4, denies any pain or disconfort.acites noted.
[2017-02-19 08:26] LABS: BASOPHILS # (AUTO) 0.1 K/uL (0.0-0.2); BASOPHILS % (AUTO) 1.5 % (0.0-2.0); EOSINOPHILS # (AUTO) 0.1 K/uL (0.0-0.4); EOSINOPHILS % (AUTO) 3.5 % (0.0-4.0); HEMATOCRIT 26.6 % (36-54); LYMPHOCYTES # (AUTO) 0.6 K/uL (1.0-5.5); LYMPHOCYTES % (AUTO) 15.6 % (20.5-51.5); MEAN CORPUSCULAR HEMOGLOBIN 34 pg (27-31); MEAN CORPUSCULAR HGB CONC 34 % (32-36); MEAN CORPUSCULAR VOLUME 100 fL (79.0-98.0); MONOCYTES # (AUTO) 0.5 K/uL (0.0-1.0); MONOCYTES % (AUTO) 12.7 % (1.7-9.3); NEUTROPHILS # (AUTO) 2.8 K/uL (1.8-7.7); NEUTROPHILS % (AUTO) 66.7 % (40.0-70.0); PLATELET COUNT (AUTO) 188 K/uL (130-430); RED BLOOD CELL COUNT(AUTO) 2.67 MIL/uL (4.2-6.2); RED CELL DISTRIBUTION WIDTH 15.1 % (9.0-15.0); WHITE BLOOD COUNT (AUTO) 4.1 K/uL (4.8-10.8)
[2017-02-19 09:13] LABS: CALCIUM 7.8 mg/dL (8.4-11.0); CREATININE 1.41 mg/dL (0.55-1.30); POTASSIUM 3.9 mmol/L (3.5-5.1)
[2017-02-19 09:18] LABS: ALBUMIN 2.3 g/dL (3.4-4.8); TOTAL PROTEIN, SERUM 8.1 g/dL (6.4-8.3)
--- NOTE | 2017-02-19 09:42 | NUR ---
Patient given written and verbal discharge instructions and verbalizes understanding. ER MD discussed with patient the results and treatment provided. Patient in stable condition. ID arm band removed. IV catheter removed intact and dressing applied, no active bleeding. Rx of xifaxan given. Patient educated on pain management and to follow up with PMD. Pain Scale 0. Opportunity for questions provided and answered.
[2017-02-19 09:43] VITALS: BP_SYST 164
--- NOTE | 2017-02-19 10:22 | NUR ---
Pharmacy called, RX not covered by insurance. Dr. Martino changed it to flagyl 500mg PO TID x5 days.
== END 2017-02-19 09:42 | disposition home or self-care (01) ==
LOC: SED 07:28
DX: K72.90 Hepatic failure, unspecified without coma (principal); E11.9 Type 2 diabetes mellitus without complications; K21.9 Gastro-esophageal reflux disease without esophagitis; I10 Essential (primary) hypertension; K74.60 Unspecified cirrhosis of liver
CPT/HCPCS: 36415; 80053; 82140-TC; 85025; 99284

== ENCOUNTER 2017-03-13 08:16 | Inpatient (IN) | payer MEDICAID ==
[~2017-03-13] VITALS: Ht 167.6 cm; Wt 64.9 kg
[2017-03-13 08:23] VITALS: BP_SYST 145
[2017-03-13 09:21] LABS: EOSINOPHILS # (AUTO) 0.1 K/uL (0.0-0.4); HEMATOCRIT 26.3 % (36-54); HEMOGLOBIN 8.8 g/dL (14.0-18.0); LYMPHOCYTES # (AUTO) 0.6 K/uL (1.0-5.5); MEAN CORPUSCULAR HGB CONC 33 % (32-36); MONOCYTES # (AUTO) 0.5 K/uL (0.0-1.0)
[2017-03-13 09:27] LABS: BASOPHILS % (AUTO) 0.8 % (0.0-2.0); EOSINOPHILS % (AUTO) 2.9 % (0.0-4.0); MEAN CORPUSCULAR HEMOGLOBIN 32 pg (27-31); MEAN CORPUSCULAR VOLUME 96 fL (79.0-98.0); MONOCYTES % (AUTO) 12.3 % (1.7-9.3); NEUTROPHILS # (AUTO) 2.5 K/uL (1.8-7.7); PLATELET COUNT (AUTO) 166 K/uL (130-430); RED BLOOD CELL COUNT(AUTO) 2.74 MIL/uL (4.2-6.2); RED CELL DISTRIBUTION WIDTH 14.7 % (9.0-15.0); WHITE BLOOD COUNT (AUTO) 3.7 K/uL (4.8-10.8)
[2017-03-13 09:34] LABS: INR 1.3 (0.80-1.20); PROTHROMBIN TIME 14.4 SECS (9.5-12.5)
[2017-03-13 09:36] LABS: CALCIUM 7.8 mg/dL (8.4-11.0); CREATININE 1.74 mg/dL (0.55-1.30); POTASSIUM 4.3 mmol/L (3.5-5.1)
[2017-03-13 09:41] LABS: ALBUMIN 2.1 g/dL (3.4-4.8); TOTAL BILIRUBIN 0.8 mg/dL (0.0-1.0)
[2017-03-13] MEDS ORDERED: cipro (11:13)
[2017-03-13] MEDS ORDERED: nexium (11:13)
[2017-03-13] MEDS ORDERED: lactulose (11:13)
[2017-03-13 11:53] LABS: BF APPEARANCE UNSPUN HAZY (CLEAR); BODY FLUID COLOR LT YELLOW (LT YELLOW); BODY FLUID SOURCE/ TYPE PARACENTESIS; LYMPHOCYTES, BODY FLUID 95 %; NEUTROPHIL, BODY FLUID 5 %; RBC, BODY FLUID 67 /uL; SOURCE/TYPE ,BODY FLUID PARACENTESIS; WBC, BODY FLUID 15 /uL
[2017-03-13] MEDS ORDERED: ALBUMIN HUMAN 25% 100 ML IV ONE (12:00)
[2017-03-13 12:17] LABS: BILIRUBIN,URINE NEGATIVE (NEGATIVE); CLARITY/URINE CLEAR (CLEAR); COLOR,URINE YELLOW (YELLOW); GLUCOSE,URINE NEGATIVE (NEGATIVE); KETONES,URINE NEGATIVE (NEGATIVE); LEUKOCYTE ESTERASE ,URINE NEGATIVE (NEGATIVE); NITRITE, URINE NEGATIVE (NEGATIVE); PROTEIN URINE 1+ (NEGATIVE); UROBILINOGEN,URINE 0.2 (0.2-1.0)
[2017-03-13 12:19] LABS: BLOOD, URINE TRACE (NEGATIVE)
[2017-03-13 12:30] LABS: BACTERIA,URINE RARE /HPF (None Seen); MUCUS,URINE 1+ /LPF (None Seen); RBC,URINE 0-3 /HPF (0-3); WBC,URINE 0-3 /HPF (0-3)
[2017-03-13 12:45] VITALS: BP_SYST 163
[2017-03-13 12:59] VITALS: BP_SYST 163
[2017-03-13] MEDS: MORPHINE 2 MG/ML INJ. SYRINGE IVP PRN (14:31)
[2017-03-13 16:00] VITALS: BP_SYST 150
[2017-03-13] MEDS ORDERED: ONDANSETRON HCL 4 MG/2 ML VIAL IVP PRN (18:30)
[2017-03-13] MEDS ORDERED: AMOXICILLIN/CLAVULANATE POTASSIUM 250 MG/5 ML, 75 ML BTL PO SCH ×2 (18:30)
[2017-03-13] MEDS ORDERED: DEXTROSE 50% JECT 50 ML DISP.SYRIN IVP PRN (18:30)
[2017-03-13 20:00] VITALS: BP_SYST 142
[2017-03-13] MEDS: LACTULOSE 20 GM/30 ML UDC PO SCH (21:31)
[2017-03-13] MEDS: AMOXICILLIN/CLAVULANATE POTASSIUM 500 MG TABLET PO SCH (21:31)
[2017-03-13 22:11] LABS: BODY FLUID GLUCOSE 146 mg/dL
[2017-03-13] MEDS: traZODone HCL 50 MG TABLET (DESYREL) PO SCH (22:50)
[2017-03-13] MEDS ORDERED: traZODone HCL 50 MG TABLET (DESYREL) ONE (22:57)
[2017-03-14] VITALS (7 sets, daily range): BP systolic 141–186
[2017-03-14] MEDS: MORPHINE 2 MG/ML INJ. SYRINGE IVP PRN ×3 (04:58→20:34)
[2017-03-14] MEDS: AMOXICILLIN/CLAVULANATE POTASSIUM 500 MG TABLET PO SCH ×2 (06:18→14:33)
[2017-03-14 06:58] LABS: EOSINOPHILS # (AUTO) 0.1 K/uL (0.0-0.4); EOSINOPHILS % (AUTO) 3.1 % (0.0-4.0); HEMATOCRIT 26.6 % (36-54); HEMOGLOBIN 8.9 g/dL (14.0-18.0); LYMPHOCYTES # (AUTO) 0.7 K/uL (1.0-5.5); LYMPHOCYTES % (AUTO) 19.7 % (20.5-51.5); MEAN CORPUSCULAR HEMOGLOBIN 32 pg (27-31); MEAN CORPUSCULAR HGB CONC 33 % (32-36); MEAN CORPUSCULAR VOLUME 96 fL (79.0-98.0); MONOCYTES # (AUTO) 0.5 K/uL (0.0-1.0); MONOCYTES % (AUTO) 14.4 % (1.7-9.3); NEUTROPHILS # (AUTO) 2.5 K/uL (1.8-7.7); NEUTROPHILS % (AUTO) 61.8 % (40.0-70.0); PLATELET COUNT (AUTO) 165 K/uL (130-430); RED BLOOD CELL COUNT(AUTO) 2.78 MIL/uL (4.2-6.2); RED CELL DISTRIBUTION WIDTH 14.4 % (9.0-15.0); WHITE BLOOD COUNT (AUTO) 3.8 K/uL (4.8-10.8)
[2017-03-14 07:18] LABS: CALCIUM 8.2 mg/dL (8.4-11.0); CREATININE 1.29 mg/dL (0.55-1.30); POTASSIUM 4.2 mmol/L (3.5-5.1)
[2017-03-14 07:26] LABS: ALBUMIN 2.3 g/dL (3.4-4.8); TOTAL BILIRUBIN 1.6 mg/dL (0.0-1.0)
[2017-03-14] MEDS: amLODIPine BESYLATE 5 MG TABLET PO SCH (08:59)
[2017-03-14] MEDS ORDERED: SPIRONOLACTONE 50 MG TABLET (ALDACTONE) PO SCH (09:00)
[2017-03-14] MEDS: LACTULOSE 20 GM/30 ML UDC PO SCH ×3 (09:00→20:38)
[2017-03-14] MEDS: OMEPRAZOLE 20 MG CAPSULE.DR (PriLOSEC) PO SCH (09:00)
[2017-03-14] MEDS: SPIRONOLACTONE 50 MG TABLET (ALDACTONE) PO SCH ×2 (09:00→20:38)
[2017-03-14] MEDS ORDERED: TAMSULOSIN HCL 0.4 MG CAP PO SCH (18:00)
[2017-03-14] MEDS: AMOXICILLIN/CLAVULANATE POTASSIUM 875 MG TABLET PO SCH (20:38)
[2017-03-14] MEDS: TAMSULOSIN HCL 0.4 MG CAP PO SCH (20:39)
[2017-03-14] MEDS: INSULIN REGULAR, HUMAN 100 UNITS/ML, 10 ML VIAL (novoLIN R) SUBCUT PRN (20:43)
[2017-03-14] MEDS: traZODone HCL 50 MG TABLET (DESYREL) PO SCH (22:07)
[2017-03-15] VITALS (7 sets, daily range): BP systolic 125–161
[2017-03-15] MEDS: MORPHINE 2 MG/ML INJ. SYRINGE IVP PRN ×5 (03:10→20:47)
[2017-03-15] MEDS: INSULIN REGULAR, HUMAN 100 UNITS/ML, 10 ML VIAL (novoLIN R) SUBCUT PRN (06:58)
[2017-03-15 07:19] LABS: BASOPHILS % (AUTO) 1.2 % (0.0-2.0); EOSINOPHILS # (AUTO) 0.1 K/uL (0.0-0.4); EOSINOPHILS % (AUTO) 3.1 % (0.0-4.0); HEMATOCRIT 24.5 % (36-54); HEMOGLOBIN 8.1 g/dL (14.0-18.0); LYMPHOCYTES # (AUTO) 0.7 K/uL (1.0-5.5); LYMPHOCYTES % (AUTO) 16.6 % (20.5-51.5); MEAN CORPUSCULAR HEMOGLOBIN 31 pg (27-31); MEAN CORPUSCULAR HGB CONC 33 % (32-36); MEAN CORPUSCULAR VOLUME 95 fL (79.0-98.0); MONOCYTES # (AUTO) 0.6 K/uL (0.0-1.0); MONOCYTES % (AUTO) 13.8 % (1.7-9.3); NEUTROPHILS # (AUTO) 2.6 K/uL (1.8-7.7); NEUTROPHILS % (AUTO) 65.3 % (40.0-70.0); PLATELET COUNT (AUTO) 149 K/uL (130-430); RED BLOOD CELL COUNT(AUTO) 2.58 MIL/uL (4.2-6.2); RED CELL DISTRIBUTION WIDTH 14.4 % (9.0-15.0)
[2017-03-15 07:44] LABS: ALBUMIN 2.2 g/dL (3.4-4.8); CREATININE 1.58 mg/dL (0.55-1.30); POTASSIUM 4.2 mmol/L (3.5-5.1); TOTAL BILIRUBIN 1.1 mg/dL (0.0-1.0)
[2017-03-15] MEDS: AMOXICILLIN/CLAVULANATE POTASSIUM 875 MG TABLET PO SCH ×2 (08:33→20:58)
[2017-03-15] MEDS: LACTULOSE 20 GM/30 ML UDC PO SCH ×3 (08:33→20:52)
[2017-03-15] MEDS: TAMSULOSIN HCL 0.4 MG CAP PO SCH ×2 (08:33→20:52)
[2017-03-15] MEDS: OMEPRAZOLE 20 MG CAPSULE.DR (PriLOSEC) PO SCH (08:33)
[2017-03-15] MEDS: amLODIPine BESYLATE 5 MG TABLET PO SCH (08:33)
[2017-03-15] MEDS: SPIRONOLACTONE 50 MG TABLET (ALDACTONE) PO SCH ×2 (08:34→20:58)
[2017-03-15] MEDS ORDERED: NEOMYCIN SULFATE 500 MG TABLET PO SCH (12:00)
[2017-03-15] MEDS: traZODone HCL 50 MG TABLET (DESYREL) PO SCH (20:50)
[2017-03-15] MEDS: RIFAXIMIN 550 MG TABLET PO SCH (20:52)
[2017-03-15 22:17] LABS: APPEARANCE,SPUN,BODY FLUID CLEAR (CLEAR); BF APPEARANCE UNSPUN SLIGHTLY HAZY (CLEAR); BODY FLUID COLOR YELLOW (LT YELLOW); BODY FLUID SOURCE/ TYPE PARACENTESIS; BODY FLUID TOTAL VOLUME 1150 mL; SOURCE/TYPE ,BODY FLUID PARACENTESIS; WBC, BODY FLUID 24 /uL
[2017-03-15 22:18] LABS: EOSINOPHIL, BODY FLUID 1 %; LYMPHOCYTES, BODY FLUID 7 %; MONOCYTES,BODY FLUID 90 %; NEUTROPHIL, BODY FLUID 2 %; RBC, BODY FLUID 63 /uL
[2017-03-16] VITALS: BP_SYST 147
[2017-03-16 00:46] LABS: BODY FLUID GLUCOSE 180 mg/dL; BODY FLUID TOTAL PROTEIN 0.6 g/dL
[2017-03-16 04:00] VITALS: BP_SYST 126
[2017-03-16] MEDS: MORPHINE 2 MG/ML INJ. SYRINGE IVP PRN ×3 (04:19→10:51)
[2017-03-16 07:47] LABS: BASOPHILS % (AUTO) 1.2 % (0.0-2.0); EOSINOPHILS # (AUTO) 0.1 K/uL (0.0-0.4); EOSINOPHILS % (AUTO) 3.1 % (0.0-4.0); HEMATOCRIT 26.3 % (36-54); HEMOGLOBIN 8.8 g/dL (14.0-18.0); LYMPHOCYTES # (AUTO) 0.6 K/uL (1.0-5.5); MEAN CORPUSCULAR HEMOGLOBIN 32 pg (27-31); MEAN CORPUSCULAR HGB CONC 34 % (32-36); MEAN CORPUSCULAR VOLUME 97 fL (79.0-98.0); MONOCYTES # (AUTO) 0.5 K/uL (0.0-1.0); MONOCYTES % (AUTO) 13.8 % (1.7-9.3); NEUTROPHILS # (AUTO) 2.7 K/uL (1.8-7.7); NEUTROPHILS % (AUTO) 65.9 % (40.0-70.0); PLATELET COUNT (AUTO) 157 K/uL (130-430); RED BLOOD CELL COUNT(AUTO) 2.71 MIL/uL (4.2-6.2); RED CELL DISTRIBUTION WIDTH 14.3 % (9.0-15.0)
[2017-03-16 07:51] LABS: CALCIUM 8.3 mg/dL (8.4-11.0); CREATININE 1.43 mg/dL (0.55-1.30); POTASSIUM 4.5 mmol/L (3.5-5.1)
[2017-03-16 07:59] LABS: WHITE BLOOD COUNT (AUTO) 3.9 K/uL (4.8-10.8)
[2017-03-16 08:00] VITALS: BP_SYST 158
[2017-03-16] MEDS: LACTULOSE 20 GM/30 ML UDC PO SCH (08:26)
[2017-03-16] MEDS: OMEPRAZOLE 20 MG CAPSULE.DR (PriLOSEC) PO SCH (08:27)
[2017-03-16] MEDS: SPIRONOLACTONE 50 MG TABLET (ALDACTONE) PO SCH (08:27)
[2017-03-16] MEDS: TAMSULOSIN HCL 0.4 MG CAP PO SCH (08:27)
[2017-03-16] MEDS: amLODIPine BESYLATE 5 MG TABLET PO SCH (08:28)
[2017-03-16] MEDS: RIFAXIMIN 550 MG TABLET PO SCH (08:28)
[2017-03-16] MEDS: AMOXICILLIN/CLAVULANATE POTASSIUM 875 MG TABLET PO SCH (08:41)
[2017-03-16] MEDS: INSULIN REGULAR, HUMAN 100 UNITS/ML, 10 ML VIAL (novoLIN R) SUBCUT PRN (12:01)
[2017-03-16 12:20] VITALS: BP_SYST 134
[2017-03-16 13:17] VITALS: BP_SYST 134
== END 2017-03-16 14:00 | disposition home or self-care (01) | DRG 279 ==
LOC: SED 08:16 → SMU 12:15
PROVIDERS: ADMIT Internal Medicine; ATTEND Internal Medicine
PROC: 0W9G3ZZ Drainage of Peritoneal Cavity, Percutaneous Approach (ICD-10-PCS; principal; 2017-03-15)
DX: K72.90 Hepatic failure, unspecified without coma (principal); E43 Unspecified severe protein-calorie malnutrition; R18.8 Other ascites; D63.8 Anemia in other chronic diseases classified elsewhere; K74.60 Unspecified cirrhosis of liver; N40.0 Benign prostatic hyperplasia without lower urinary tract symptoms; E11.22 Type 2 diabetes mellitus with diabetic chronic kidney disease; N18.9 Chronic kidney disease, unspecified; E11.21 Type 2 diabetes mellitus with diabetic nephropathy; K21.9 Gastro-esophageal reflux disease without esophagitis; Z86.19 Personal history of other infectious and parasitic diseases; Z79.899 Other long term (current) drug therapy; Z88.8 Allergy status to other drugs, medicaments and biological substances; Z68.23 Body mass index [BMI] 23.0-23.9, adult
CPT/HCPCS: 36415; 49083; 80048; 80053; 81000-TC; 82140-TC; 82947-TC; 82962; 84157-TC; 85025; 85610-TC; 85730-TC; 89051-TC; 89060-TC; 93005; 99285; J1815; J2270; J2405; P9046

== ENCOUNTER 2017-03-25 08:37 | Inpatient (IN) | payer MEDICAID ==
[~2017-03-25] VITALS: Ht 167.6 cm; Wt 65.8 kg
[2017-03-25 08:37] VITALS: BP_SYST 160
[~2017-03-25 08:37] MED LIST changes: +cipro; +lactulose; +nexium
[2017-03-25 09:29] LABS: BASOPHILS % (AUTO) 0.9 % (0.0-2.0); EOSINOPHILS % (AUTO) 0.5 % (0.0-4.0); HEMATOCRIT 26.4 % (36-54); HEMOGLOBIN 8.7 g/dL (14.0-18.0); LYMPHOCYTES # (AUTO) 0.4 K/uL (1.0-5.5); LYMPHOCYTES % (AUTO) 8.2 % (20.5-51.5); MEAN CORPUSCULAR HEMOGLOBIN 31 pg (27-31); MEAN CORPUSCULAR HGB CONC 33 % (32-36); MEAN CORPUSCULAR VOLUME 94 fL (79.0-98.0); MONOCYTES # (AUTO) 0.4 K/uL (0.0-1.0); MONOCYTES % (AUTO) 8.4 % (1.7-9.3); PLATELET COUNT (AUTO) 142 K/uL (130-430); RED BLOOD CELL COUNT(AUTO) 2.82 MIL/uL (4.2-6.2); RED CELL DISTRIBUTION WIDTH 14.5 % (9.0-15.0); WHITE BLOOD COUNT (AUTO) 4.8 K/uL (4.8-10.8)
[2017-03-25 09:37] LABS: CALCIUM 8.3 mg/dL (8.4-11.0); CREATININE 1.71 mg/dL (0.55-1.30)
[2017-03-25 09:39] LABS: INR 1.1 (0.80-1.20); PROTHROMBIN TIME 12.1 SECS (9.5-12.5)
[2017-03-25 09:42] LABS: ALBUMIN 2.6 g/dL (3.4-4.8); TOTAL BILIRUBIN 1.3 mg/dL (0.0-1.0)
[2017-03-25] MEDS ORDERED: FERR-57 PO (12:07)
[2017-03-25] MEDS ORDERED: ESCI10TA PO (12:07)
[2017-03-25] MEDS ORDERED: METR500T PO (12:07)
[2017-03-25] MEDS ORDERED: NOR10 PO (12:07)
[2017-03-25] MEDS ORDERED: FURO80TA86 PO (12:07)
[2017-03-25] MEDS ORDERED: ESOM40CA PO (12:07)
[2017-03-25] MEDS ORDERED: NPH,100V SUBCUT (12:07)
[2017-03-25] MEDS ORDERED: NEU400 PO (12:07)
[2017-03-25] MEDS ORDERED: TRAZ-123 PO (12:07)
[2017-03-25 12:40] VITALS: BP_SYST 159
[2017-03-25] MEDS: D5NS 1,000 ML IV SCH ×2 (12:49→22:39)
[2017-03-25] MEDS ORDERED: MORPHINE 2 MG/ML INJ. SYRINGE ONE (14:09)
[2017-03-25 16:46] VITALS: BP_SYST 155
[2017-03-25] MEDS ORDERED: OCTREOTIDE ACETATE 1,250 MCG in NS 243.75 ML IV SCH (18:00)
[2017-03-25] MEDS ORDERED: PANTOPRAZOLE SODIUM 80 MG in NS 100 ML IV ONE (18:00)
[2017-03-25] MEDS ORDERED: OCTREOTIDE ACETATE 50 MCG/ML AMP IV ONE ×2 (18:00→18:30)
[2017-03-25 19:24] LABS: HEMATOCRIT 25.2 % (36-54); HEMOGLOBIN 8.2 g/dL (14.0-18.0)
[2017-03-25 19:40] VITALS: BP_SYST 155
[2017-03-25] MEDS: MORPHINE 2 MG/ML INJ. SYRINGE IVP PRN (20:53)
[2017-03-25] MEDS: PANTOPRAZOLE SODIUM 40 MG in NS 50 ML IV SCH (21:33)
[2017-03-26] VITALS (8 sets, daily range): BP systolic 110–164
[2017-03-26] MEDS: PANTOPRAZOLE SODIUM 40 MG in NS 50 ML IV SCH ×5 (02:05→19:00)
[2017-03-26] MEDS: MORPHINE 2 MG/ML INJ. SYRINGE IVP PRN ×4 (02:18→23:40)
[2017-03-26 02:35] LABS: HEMATOCRIT 24.3 % (36-54)
[2017-03-26] MEDS: D5NS 1,000 ML IV SCH ×2 (06:57→19:00)
[2017-03-26] MEDS ORDERED: MEPERIDINE HCL/PF 100 MG/ML AMP ONE ×2 (07:30→07:31)
[2017-03-26] MEDS ORDERED: MIDAZOLAM HCL 5 MG/5 ML VIAL ONE ×2 (07:31)
[2017-03-26] MEDS ORDERED: SIMETHICONE 40 MG/0.6 ML ML ONE (07:32)
[2017-03-26 07:34] LABS: HEMOGLOBIN 8.3 g/dL (14.0-18.0); MEAN CORPUSCULAR HEMOGLOBIN 31 pg (27-31); MEAN CORPUSCULAR HGB CONC 33 % (32-36); MEAN CORPUSCULAR VOLUME 94 fL (79.0-98.0); PLATELET COUNT (AUTO) 118 K/uL (130-430); RED BLOOD CELL COUNT(AUTO) 2.66 MIL/uL (4.2-6.2); RED CELL DISTRIBUTION WIDTH 14.4 % (9.0-15.0)
[2017-03-26 07:45] LABS: ALBUMIN 2.3 g/dL (3.4-4.8); CALCIUM 7.8 mg/dL (8.4-11.0); CREATININE 1.41 mg/dL (0.55-1.30); POTASSIUM 3.8 mmol/L (3.5-5.1)
[2017-03-26 08:03] LABS: WHITE BLOOD COUNT (AUTO) 3.9 K/uL (4.8-10.8)
[2017-03-26] MEDS ORDERED: MEPERIDINE HCL/PF 100 MG/ML AMP IV ONE (08:06)
[2017-03-26] MEDS ORDERED: MIDAZOLAM HCL 5 MG/5 ML VIAL IVP ONE ×2 (08:08→08:10)
[2017-03-26 10:02] LABS: HEMATOCRIT 27.5 % (36-54); HEMOGLOBIN 9.1 g/dL (14.0-18.0)
[2017-03-26 10:39] LABS: ATYPICAL LYMPHOCYTES % 0 % (0-0); BAND % (MANUAL) 1 % (0-6); BASOPHILS % (MANUAL) 0 % (0-2); EOSINOPHILS % (MANUAL) 3 % (0-7); LYMPHOCYTES % (MANUAL) 22 % (20-46); MONOCYTES % (MANUAL) 9 % (0-11)
[2017-03-26] MEDS ORDERED: FUROSEMIDE 80 MG TABLET PO ONE (13:30)
[2017-03-26] MEDS ORDERED: SPIRONOLACTONE 50 MG TABLET (ALDACTONE) PO ONE (13:30)
[2017-03-26] MEDS ORDERED: ESCITALOPRAM OXALATE 10 MG TABLET PO SCH (13:30)
[2017-03-26] MEDS ORDERED: cloNIDine HCL 0.1 MG TABLET PO PRN (13:30)
[2017-03-26] MEDS ORDERED: amLODIPine BESYLATE 5 MG TABLET PO ONE (13:30)
[2017-03-26] MEDS ORDERED: CITALOPRAM HYDROBROMIDE 20 MG TABLET PO ONE (13:45)
[2017-03-26] MEDS: INSULIN ASPART 100 UNITS/ML, 10 ML VIAL (NovoLOG) SUBCUT PRN ×2 (17:11→22:08)
[2017-03-26] MEDS ORDERED: TAMSULOSIN HCL 0.4 MG CAP PO SCH (18:00)
[2017-03-26 18:28] LABS: HEMOGLOBIN 8.5 g/dL (14.0-18.0)
[2017-03-26 18:34] LABS: HEMATOCRIT 26.6 % (36-54)
[2017-03-26] MEDS: FERROUS SULFATE 325 MG TABLET.DR PO SCH (21:44)
[2017-03-27 00:35] VITALS: BP_SYST 143
[2017-03-27] MEDS ORDERED: PANTOPRAZOLE SODIUM 40 MG/VIAL (PROTONIX) ONE ×2 (01:51→05:29)
[2017-03-27 02:28] LABS: HEMATOCRIT 25.7 % (36-54); HEMOGLOBIN 8.3 g/dL (14.0-18.0)
[2017-03-27] MEDS: MORPHINE 2 MG/ML INJ. SYRINGE IVP PRN ×2 (03:51→08:38)
[2017-03-27] MEDS: D5NS 1,000 ML IV SCH (03:54)
[2017-03-27 04:33] VITALS: BP_SYST 125
[2017-03-27] MEDS: PANTOPRAZOLE SODIUM 40 MG in NS 50 ML IV SCH ×3 (05:24)
[2017-03-27] MEDS: INSULIN ASPART 100 UNITS/ML, 10 ML VIAL (NovoLOG) SUBCUT PRN (07:22)
[2017-03-27 08:29] VITALS: BP_SYST 129
[2017-03-27] MEDS: FERROUS SULFATE 325 MG TABLET.DR PO SCH (08:38)
[2017-03-27] MEDS ORDERED: amLODIPine BESYLATE 5 MG TABLET PO SCH (09:00)
[2017-03-27] MEDS ORDERED: FUROSEMIDE 80 MG TABLET PO SCH (09:00)
[2017-03-27] MEDS ORDERED: CITALOPRAM HYDROBROMIDE 20 MG TABLET PO SCH (09:00)
[2017-03-27] MEDS ORDERED: SPIRONOLACTONE 50 MG TABLET (ALDACTONE) PO SCH (09:00)
[2017-03-27 09:49] LABS: HEMATOCRIT 25.1 % (36-54); HEMOGLOBIN 8.5 g/dL (14.0-18.0)
[2017-03-27 11:17] VITALS: BP_SYST 129
[2017-03-27 11:27] VITALS: BP_SYST 141
== END 2017-03-27 12:20 | disposition home or self-care (01) | DRG 242 ==
LOC: SED 08:37 → STU 11:53 → SMU 03-26 09:23
PROVIDERS: ADMIT Internal Medicine Hospice and Palliative Medicine; ATTEND Internal Medicine Hospice and Palliative Medicine
PROC: 0DB68ZX Excision of Stomach, Via Natural or Artificial Opening Endoscopic, Diagnostic (ICD-10-PCS; principal; 2017-03-26 08:00)
DX: I85.01 Esophageal varices with bleeding (principal); D61.818 Other pancytopenia; N17.9 Acute kidney failure, unspecified; K76.6 Portal hypertension; I10 Essential (primary) hypertension; E11.9 Type 2 diabetes mellitus without complications; D73.1 Hypersplenism; K92.2 Gastrointestinal hemorrhage, unspecified; K70.31 Alcoholic cirrhosis of liver with ascites; K70.40 Alcoholic hepatic failure without coma; K21.9 Gastro-esophageal reflux disease without esophagitis; K44.9 Diaphragmatic hernia without obstruction or gangrene; K72.90 Hepatic failure, unspecified without coma; B19.20 Unspecified viral hepatitis C without hepatic coma; K31.89 Other diseases of stomach and duodenum; F10.20 Alcohol dependence, uncomplicated; Y90.9 Presence of alcohol in blood, level not specified; Z88.8 Allergy status to other drugs, medicaments and biological substances; Z79.899 Other long term (current) drug therapy
CPT/HCPCS: 36415; 43239; 71010; 76705; 80053; 82272; 82962; 85007; 85018-TC; 85025; 85027; 85610-TC; 85730-TC; 86886; 86900; 86901; 87081; 93005; 99285; C9113; J1815; J2175; J2250; J2270; J2354; J7042; J7050

== ENCOUNTER 2017-04-24 19:59 | Inpatient (IN) | payer MEDICAID, OTHER ==
[~2017-04-24] VITALS: Ht 167.6 cm; Wt 60.8 kg
[~2017-04-24 19:59] MED LIST changes: -AMLO2.5T2 PO; -AMOX-423 PO; +ESCI10TA PO; +ESOM40CA PO; +FERR-57 PO; +FURO80TA86 PO; +METR500T PO; +NEU400 PO; +NOR10 PO; +NPH,100V SUBCUT; +TRAZ-123 PO
[2017-04-24 20:02] VITALS: BP_SYST 113
[2017-04-24] MEDS ORDERED: NACL 0.9% 1,000 ML IV ONE (21:15)
[2017-04-24] MEDS ORDERED: ONDANSETRON HCL 4 MG/2 ML VIAL IVP ONE (21:15)
[2017-04-24] MEDS ORDERED: KETOROLAC TROMETHAMINE 30 MG VIAL IVP ONE (21:15)
[2017-04-24 22:27] LABS: BASOPHILS % (AUTO) 0.6 % (0.0-2.0); EOSINOPHILS # (AUTO) 0.1 K/uL (0.0-0.4); EOSINOPHILS % (AUTO) 1.3 % (0.0-4.0); HEMATOCRIT 23.1 % (36-54); HEMOGLOBIN 7.9 g/dL (14.0-18.0); LYMPHOCYTES # (AUTO) 0.9 K/uL (1.0-5.5); LYMPHOCYTES % (AUTO) 14.3 % (20.5-51.5); MEAN CORPUSCULAR HEMOGLOBIN 32 pg (27-31); MEAN CORPUSCULAR HGB CONC 34 % (32-36); MEAN CORPUSCULAR VOLUME 92 fL (79.0-98.0); MONOCYTES # (AUTO) 0.7 K/uL (0.0-1.0); MONOCYTES % (AUTO) 10.7 % (1.7-9.3); NEUTROPHILS # (AUTO) 4.6 K/uL (1.8-7.7); NEUTROPHILS % (AUTO) 73.1 % (40.0-70.0); PLATELET COUNT (AUTO) 203 K/uL (130-430); RED BLOOD CELL COUNT(AUTO) 2.51 MIL/uL (4.2-6.2); RED CELL DISTRIBUTION WIDTH 13.5 % (9.0-15.0); WHITE BLOOD COUNT (AUTO) 6.3 K/uL (4.8-10.8)
[2017-04-24 22:39] LABS: CALCIUM 8.6 mg/dL (8.4-11.0); CREATININE 1.95 mg/dL (0.55-1.30); POTASSIUM 4.3 mmol/L (3.5-5.1)
[2017-04-24 22:44] LABS: TOTAL BILIRUBIN 1.4 mg/dL (0.0-1.0)
[2017-04-25] VITALS (7 sets, daily range): BP systolic 85–139
[2017-04-25] MEDS ORDERED: FLU VACC QS 2017-18(36MOS+)/PF 0.5 ML/SYR SYRINGE I.M. PRN (00:30)
[2017-04-25] MEDS ORDERED: NACL 0.9% 1,000 ML IV SCH ×2 (01:00)
[2017-04-25] MEDS ORDERED: INSULIN ASPART 100 UNITS/ML, 10 ML VIAL (NovoLOG) SUBCUT PRN (01:00)
[2017-04-25 06:46] LABS: BASOPHILS % (AUTO) 0.6 % (0.0-2.0); EOSINOPHILS # (AUTO) 0.2 K/uL (0.0-0.4); EOSINOPHILS % (AUTO) 4.2 % (0.0-4.0); LYMPHOCYTES % (AUTO) 22.7 % (20.5-51.5); MEAN CORPUSCULAR HEMOGLOBIN 31 pg (27-31); MEAN CORPUSCULAR HGB CONC 34 % (32-36); MEAN CORPUSCULAR VOLUME 92 fL (79.0-98.0); MONOCYTES # (AUTO) 0.7 K/uL (0.0-1.0); MONOCYTES % (AUTO) 16.5 % (1.7-9.3); NEUTROPHILS # (AUTO) 2.3 K/uL (1.8-7.7); PLATELET COUNT (AUTO) 161 K/uL (130-430); RED BLOOD CELL COUNT(AUTO) 2.19 MIL/uL (4.2-6.2); RED CELL DISTRIBUTION WIDTH 13.6 % (9.0-15.0); WHITE BLOOD COUNT (AUTO) 4.2 K/uL (4.8-10.8)
[2017-04-25 06:52] LABS: HEMOGLOBIN 6.8 g/dL (14.0-18.0)
[2017-04-25 06:53] LABS: HEMATOCRIT 20.1 % (36-54)
[2017-04-25 07:21] LABS: CALCIUM 7.9 mg/dL (8.4-11.0); CREATININE 2.18 mg/dL (0.55-1.30); POTASSIUM 3.7 mmol/L (3.5-5.1)
[2017-04-25] MEDS: HYDROcodone/ACETAMIN 5-325 MG TAB (NORCO/ VICODIN) PO PRN (08:43)
[2017-04-25] MEDS: LACTULOSE 20 GM/30 ML UDC PO SCH ×3 (08:44→21:53)
[2017-04-25] MEDS: CITALOPRAM HYDROBROMIDE 20 MG TABLET PO SCH (08:44)
[2017-04-25] MEDS: GABAPENTIN 300 MG CAPSULE PO SCH ×3 (08:44→21:54)
[2017-04-25] MEDS: metroNIDAZOLE 500 MG TABLET PO SCH ×3 (08:44→21:54)
[2017-04-25] MEDS: FERROUS SULFATE 325 MG TABLET.DR PO SCH ×2 (08:45→21:53)
[2017-04-25] MEDS: INSULIN NPH 100 UNITS/ML 10 ML VIAL SUBCUT SCH (08:55)
[2017-04-25] MEDS: amLODIPine BESYLATE 10 MG TABLET PO SCH (09:00)
[2017-04-25] MEDS ORDERED: OMEPRAZOLE 20 MG CAPSULE.DR (PriLOSEC) PO SCH (09:00)
[2017-04-25] MEDS ORDERED: ESCITALOPRAM OXALATE 10 MG TABLET PO SCH (09:00)
[2017-04-25] MEDS: SPIRONOLACTONE 50 MG TABLET (ALDACTONE) PO SCH (10:56)
[2017-04-25] MEDS ORDERED: PANTOPRAZOLE SODIUM 40 MG/VIAL (PROTONIX) IVP ONE (11:00)
[2017-04-25] MEDS: NACL 0.9% 1,000 ML IV SCH (12:19)
[2017-04-25] MEDS: TAMSULOSIN HCL 0.4 MG CAP PO SCH (18:11)
[2017-04-25] MEDS: PANTOPRAZOLE SODIUM 40 MG/VIAL (PROTONIX) IVP SCH (21:52)
[2017-04-25] MEDS: traZODone HCL 50 MG TABLET (DESYREL) PO SCH (21:53)
[2017-04-26] VITALS (7 sets, daily range): BP systolic 107–134
[2017-04-26 06:04] LABS: BASOPHILS % (AUTO) 0.8 % (0.0-2.0); EOSINOPHILS # (AUTO) 0.2 K/uL (0.0-0.4); HEMOGLOBIN 8.7 g/dL (14.0-18.0); LYMPHOCYTES % (AUTO) 23.1 % (20.5-51.5); MEAN CORPUSCULAR HEMOGLOBIN 30 pg (27-31); MEAN CORPUSCULAR HGB CONC 33 % (32-36); MEAN CORPUSCULAR VOLUME 91 fL (79.0-98.0); MONOCYTES # (AUTO) 0.8 K/uL (0.0-1.0); MONOCYTES % (AUTO) 18.5 % (1.7-9.3); NEUTROPHILS # (AUTO) 2.3 K/uL (1.8-7.7); NEUTROPHILS % (AUTO) 52.6 % (40.0-70.0); PLATELET COUNT (AUTO) 147 K/uL (130-430); RED BLOOD CELL COUNT(AUTO) 2.87 MIL/uL (4.2-6.2); RED CELL DISTRIBUTION WIDTH 15.1 % (9.0-15.0); WHITE BLOOD COUNT (AUTO) 4.4 K/uL (4.8-10.8)
[2017-04-26] MEDS: NACL 0.9% 1,000 ML IV SCH (06:11)
[2017-04-26 06:55] LABS: ALBUMIN 1.5 g/dL (3.4-4.8); CALCIUM 8.1 mg/dL (8.4-11.0); CREATININE 1.85 mg/dL (0.55-1.30); POTASSIUM 4.1 mmol/L (3.5-5.1); TOTAL BILIRUBIN 1.3 mg/dL (0.0-1.0)
[2017-04-26] MEDS: INSULIN NPH 100 UNITS/ML 10 ML VIAL SUBCUT SCH (07:03)
[2017-04-26] MEDS: FERROUS SULFATE 325 MG TABLET.DR PO SCH ×2 (08:37→21:02)
[2017-04-26] MEDS: PANTOPRAZOLE SODIUM 40 MG/VIAL (PROTONIX) IVP SCH ×2 (08:37→21:01)
[2017-04-26] MEDS: CITALOPRAM HYDROBROMIDE 20 MG TABLET PO SCH (08:37)
[2017-04-26] MEDS: metroNIDAZOLE 500 MG TABLET PO SCH ×3 (08:37→21:03)
[2017-04-26] MEDS: GABAPENTIN 300 MG CAPSULE PO SCH ×3 (08:37→21:03)
[2017-04-26] MEDS: SPIRONOLACTONE 50 MG TABLET (ALDACTONE) PO SCH (08:43)
[2017-04-26] MEDS: LACTULOSE 20 GM/30 ML UDC PO SCH ×3 (08:57→21:02)
[2017-04-26] MEDS: amLODIPine BESYLATE 10 MG TABLET PO SCH (08:58)
[2017-04-26] MEDS: HYDROcodone/ACETAMIN 5-325 MG TAB (NORCO/ VICODIN) PO PRN (15:33)
[2017-04-26] MEDS: TAMSULOSIN HCL 0.4 MG CAP PO SCH (17:24)
[2017-04-26] MEDS: traZODone HCL 50 MG TABLET (DESYREL) PO SCH (21:02)
== END 2017-04-26 23:15 | DRG 280 ==
LOC: SED 19:59 → STU 23:12
PROVIDERS: ADMIT Family Medicine; ATTEND Family Medicine
PROC: 30233N1 Transfusion of Nonautologous Red Blood Cells into Peripheral Vein, Percutaneous Approach (ICD-10-PCS; principal; 2017-04-25)
DX: K70.30 Alcoholic cirrhosis of liver without ascites (principal); N17.0 Acute kidney failure with tubular necrosis; E43 Unspecified severe protein-calorie malnutrition; R64 Cachexia; D61.818 Other pancytopenia; K76.6 Portal hypertension; I85.10 Secondary esophageal varices without bleeding; I50.9 Heart failure, unspecified; I13.0 Hypertensive heart and chronic kidney disease with heart failure and stage 1 through stage 4 chronic kidney disease, or unspecified chronic kidney disease; D62 Acute posthemorrhagic anemia; E11.21 Type 2 diabetes mellitus with diabetic nephropathy; E11.40 Type 2 diabetes mellitus with diabetic neuropathy, unspecified; N18.3 Chronic kidney disease, stage 3 (moderate); E11.22 Type 2 diabetes mellitus with diabetic chronic kidney disease; B18.2 Chronic viral hepatitis C; F10.988 Alcohol use, unspecified with other alcohol-induced disorder; F17.210 Nicotine dependence, cigarettes, uncomplicated; K21.9 Gastro-esophageal reflux disease without esophagitis; F32.9 Major depressive disorder, single episode, unspecified; D63.8 Anemia in other chronic diseases classified elsewhere; K31.89 Other diseases of stomach and duodenum; K44.9 Diaphragmatic hernia without obstruction or gangrene; S01.91XD Laceration without foreign body of unspecified part of head, subsequent encounter; Z88.8 Allergy status to other drugs, medicaments and biological substances; Z79.4 Long term (current) use of insulin; Z68.21 Body mass index [BMI] 21.0-21.9, adult
CPT/HCPCS: 36415; 76770; 80048; 80053; 82140-TC; 82962; 83690-TC; 84484; 85025; 86886; 86900; 86901; 86920; 87081; 93005; 93306; 96361; 96374; 96375; 97116-GP; 99285; C9113; J1815; J1885; J2405; J7030; J7050; P9021; Q2037